=== PATIENT | female | born 1955 | race Caucasian/White ===

== ENCOUNTER → 2021-04-04 18:14 | Outpatient (CLI) | payer MEDICARE, SELFPAY ==
[2021-04-04 18:57] LABS: Basophils # 0.1 K/mm3 (0-0.2); Basophils % 0.8 % (0.1-2.0); Eosinophils # 0.1 K/mm3 (0.0-0.4); Eosinophils % 1.1 % (0.1-12.0); Hematocrit 40.1 % (37.0-47.0); Hemoglobin 13.5 g/dL (12.2-16.2); Lymphocytes # 2.6 K/mm3 (0.7-4.5); Lymphocytes % 26.2 % (10-50); Mean Corpuscular HGB Conc 33.7 g/dL (31.8-35.4); Mean Corpuscular Hemoglobin 30.6 pg (27.0-31.2); Mean Corpuscular Volume 90.8 fl (81-99); Mean Platelet Volume 8.5 fl (7.4-10.4); Monocytes # 0.6 K/mm3 (0.1-1.0); Monocytes % 6.3 % (1.7-9.3); Neutrophils # 6.6 K/mm3 (1.8-7.8); Neutrophils % 65.7 % (37.0-80.0); Platelet Count 399 K/mm3 (142-424); Red Blood Count 4.42 M/mm3 (4.20-5.40); Red Cell Distribution Width 14.3 % (11.5-17.5)
[2021-04-04 19:27] LABS: Alanine Aminotransferase 30 U/L (12-78); Albumin Level 4.7 g/dl (3.5-5.0); Albumin/Globulin Ratio 1.5 (1.1-1.8); Alkaline Phosphatase 124 U/L (38-126); Aspartate Amino Transferase 38 U/L (14-36); Bilirubin,Total 0.8 mg/dl (0.2-1.3); Blood Urea Nitrogen 16 mg/dl (7-17); Calcium 9.7 mg/dl (8.4-10.2); Carbon Dioxide 31 mmol/L (22.0-30.0); Chloride 98 mmol/L (98-107); Cholesterol 177 mg/dl (140-200); Estimated Glomerular Filt Rate 84 ml/min (>60); GFR (African American) 101 ML/MIN (>60); Globulin 3.1 g/dL (1.3-3.2); Glucose 94 mg/dl (74-100); HDL Cholesterol 44 mg/dl (40-60); Sodium 136 mmol/L (136-145); Total Protein,Serum 7.8 g/dl (6.3-8.2); Triglycerides 174 mg/dl (30-150); VLDL Cholesterol 35 mg/dL (0-40)
[2021-04-04 19:37] LABS: Direct LDL Cholesterol 96.95 mg/dL (100-129)
[2021-04-04 20:10] LABS: Thyroid Stimulating Hormone 1.22 uIU/mL (0.465-4.68)
== END ==
PROVIDERS: Visit Provider Family Medicine
DX: E03.9 Hypothyroidism, unspecified (principal); I10 Essential (primary) hypertension; R10.9 Unspecified abdominal pain
CPT/HCPCS: 80053; 80061; 84436; 84443; 85025

== ENCOUNTER → 2021-04-26 08:04 | Outpatient (CLI) | payer MEDICARE, OTHER, SELFPAY ==
--- NOTE | 2021-04-26 08:04 | CT_ITS ---
PROCEDURE: CT ABDOMEN PELVIS WO CON CLINICAL INDICATION: abd pain, LLQ pain abd pain, LLQ pain for 2 months COMPARISON: No exams were available for comparison TECHNIQUE: Axial images obtained with sagittal and coronal reformats. All CT scans at the facility use one or more dose reduction, viz: automated exposure control, ma/kV adjustment per patient size (including targeted exams where dose is matched to indication, i.e. head), or iterative reconstruction technique. FINDINGS: Lower thorax: The lower lung guzman are clear with minimal atelectasis or scarring at the left posterior gutter, there is no pleural fluid ABDOMEN: Liver: No masses or biliary dilatation. Gallbladder: Nondistended. No radio opaque stones. 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 Pancreas: No masses or peripancreatic fluid collections. Spleen: unremarkable except for a few calcifications Adrenals: unremarkable Kidneys/ureters: unremarkable ABDOMEN & PELVIS: Stomach bowel: There is a small hiatal hernia. The stomach is nondistended and appears normal. No obvious mass or thickening. The small bowel appears normal. There has been a previous appendectomy with a surgical clip at the appendix site. There is a large amount stool in the ascending and transverse colon. There is scattered stool and gas seen in the descending and sigmoid colon with mild diffuse diverticulosis. There is no evidence of diverticulitis. . Peritoneum: No abnormal fluid collections. No obvious inflammatory changes. No free air. Lymph nodes: No enlarged lymph nodes apparent. Vasculature: There is mild scattered arteriosclerotic calcification of the infrarenal aorta and proximal common iliac arteries but there is no aneurysm. Bones: No acute fracture PELVIS: Reproductive: Post hysterectomy. Bladder: The urinary bladder is moderately distended with urine and appears normal, there is no free fluid in the pelvis. Appendix: Post appendectomy IMPRESSION: Large amount right-sided stool, mild diffuse diverticulosis of the descending and sigmoid colon without evidence of diverticulitis Dictated by: Dr. Manohar Sanders MD 04/26/2021 08:58 Dr. Manohra Sanders MD in [facility] 04/26/2021 08:58
== END ==
PROVIDERS: PCP Family Medicine; Visit Provider Family Medicine
DX: R10.32 Left lower quadrant pain (principal); R10.9 Unspecified abdominal pain
CPT/HCPCS: 74176

== ENCOUNTER → 2021-06-05 14:38 | Outpatient (POV) | payer MEDICARE, OTHER, SELFPAY | PROVIDERS: Visit Provider Nurse Practitioner Family | DX: Z00.00 Encounter for general adult medical examination without abnormal findings (principal) ==

== ENCOUNTER → 2021-07-04 15:35 | Outpatient (CLI) | payer MEDICARE, OTHER, SELFPAY | PROVIDERS: Visit Provider Family Medicine | DX: R05 Cough (principal); Z20.822 Contact with and (suspected) exposure to COVID-19 | CPT/HCPCS: U0003 ==

== ENCOUNTER → 2023-03-08 13:40 | Outpatient (CLI) | payer MEDICARE, SELFPAY ==
[2023-03-08 18:13] LABS: Basophils # 0.1 K/mm3 (0-0.2); Basophils % 0.6 % (0.1-2.0); Eosinophils # 0.1 K/mm3 (0.0-0.4); Hemoglobin 13.7 g/dL (12.2-16.2); Lymphocytes # 2.2 K/mm3 (0.7-4.5); Lymphocytes % 25.3 % (10-50); Mean Corpuscular HGB Conc 33.4 g/dL (31.8-35.4); Mean Corpuscular Hemoglobin 31.7 pg (27.0-31.2); Mean Platelet Volume 8.9 fl (7.4-10.4); Monocytes # 0.6 K/mm3 (0.1-1.0); Monocytes % 6.6 % (1.7-9.3); Neutrophils # 5.7 K/mm3 (1.8-7.8); Neutrophils % 66.5 % (37.0-80.0); Platelet Count 424 K/mm3 (142-424); Red Blood Count 4.31 M/mm3 (4.20-5.40); Red Cell Distribution Width 14.3 % (11.5-17.5); White Blood Count 8.6 K/mm3 (4.8-10.8)
[2023-03-08 18:38] LABS: Alanine Aminotransferase 30 U/L (12-78); Albumin Level 4.4 g/dl (3.5-5.0); Albumin/Globulin Ratio 1.5 (1.1-1.8); Alkaline Phosphatase 166 U/L (38-126); Anion Gap 14.1 mEq/L (5-15); Aspartate Amino Transferase 31 U/L (14-36); Bilirubin,Total 0.8 mg/dl (0.2-1.3); Blood Urea Nitrogen 17 mg/dl (7-17); Calcium 9.8 mg/dl (8.4-10.2); Carbon Dioxide 30 mmol/L (22.0-30.0); Chloride 96 mmol/L (98-107); Chol/HDL Ratio 3.1 (1-3.5); Cholesterol 154 mg/dl (140-200); Estimated Glomerular Filt Rate 99 ml/min (>60); GFR (African American) 120 ML/MIN (>60); Glucose 87 mg/dl (74-100); HDL Cholesterol 49 mg/dl (40-60); Potassium 4.1 mmoL/L (3.5-5.1); Sodium 136 mmol/L (136-145); Total Protein,Serum 7.4 g/dl (6.3-8.2); Triglycerides 132 mg/dl (30-150); VLDL Cholesterol 26 mg/dL (0-40)
[2023-03-08 18:49] LABS: Direct LDL Cholesterol 84.74 mg/dL (100-129)
[2023-03-08 19:11] LABS: Thyroid Stimulating Hormone 0.55 uIU/mL (0.465-4.68)
== END ==
PROVIDERS: PCP Family Medicine; Visit Provider Family Medicine
DX: E03.9 Hypothyroidism, unspecified (principal); R19.7 Diarrhea, unspecified
CPT/HCPCS: 80053; 80061; 84436; 84443; 85025

== ENCOUNTER 2024-01-22 18:50 | Outpatient (CLI) | payer MEDICARE, SELFPAY ==
[2024-01-22 18:34] LABS: Basophils # 0.1 K/mm3 (0-0.2); Basophils % 1.4 % (0.1-2.0); Eosinophils # 0.1 K/mm3 (0.0-0.4); Eosinophils % 1.8 % (0.1-12.0); Hematocrit 38.7 % (37.0-47.0); Hemoglobin 13.2 g/dL (12.2-16.2); Lymphocytes # 1.8 K/mm3 (0.7-4.5); Mean Corpuscular HGB Conc 34.2 g/dL (31.8-35.4); Mean Corpuscular Hemoglobin 32.6 pg (27.0-31.2); Mean Corpuscular Volume 95.4 fl (81-99); Mean Platelet Volume 8.8 fl (7.4-10.4); Monocytes # 0.4 K/mm3 (0.1-1.0); Monocytes % 6.4 % (1.7-9.3); Neutrophils # 3.8 K/mm3 (1.8-7.8); Neutrophils % 61.3 % (37.0-80.0); Platelet Count 341 K/mm3 (142-424); Red Blood Count 4.05 M/mm3 (4.20-5.40); White Blood Count 6.2 K/mm3 (4.8-10.8)
[2024-01-22 19:01] LABS: T4 (Thyroxine) 9.8 ug/dl (5.53-11.0)
[2024-01-22 19:15] LABS: Thyroid Stimulating Hormone < 0.02 uIU/mL (0.465-4.68)
[2024-01-22 19:22] LABS: Chloride 100 mmol/L (98-107)
[2024-01-22 19:23] LABS: Potassium 4.2 mmoL/L (3.5-5.1); Sodium 137 mmol/L (136-145)
[2024-01-22 19:25] LABS: Alanine Aminotransferase 27 U/L (12-78); Aspartate Amino Transferase 33 U/L (14-36); Blood Urea Nitrogen 17 mg/dl (7-17); Estimated Glomerular Filt Rate 71 ml/min (>60); GFR (African American) 86 ML/MIN (>60)
[2024-01-22 19:26] LABS: Albumin Level 4.2 g/dl (3.5-5.0); Albumin/Globulin Ratio 1.6 (1.1-1.8); Alkaline Phosphatase 136 U/L (38-126); Anion Gap 9.2 mEq/L (5-15); Bilirubin,Total 0.4 mg/dl (0.2-1.3); Calcium 9.7 mg/dl (8.4-10.2); Carbon Dioxide 32 mmol/L (22.0-30.0); Chol/HDL Ratio 4.4 (1-3.5); Cholesterol 153 mg/dl (140-200); Globulin 2.6 g/dL (1.3-3.2); Glucose 116 mg/dl (74-100); HDL Cholesterol 35 mg/dl (40-60); Total Protein,Serum 6.8 g/dl (6.3-8.2); Triglycerides 137 mg/dl (30-150); VLDL Cholesterol 27 mg/dL (0-40)
[2024-01-22 19:34] LABS: Hemoglobin A1C 5.7 % (4.0-6.0)
[2024-01-22 19:41] LABS: Direct LDL Cholesterol 84.11 mg/dL (100-129)
== END 2024-01-22 23:59 ==
LOC: LAB.DROPOF 18:51
PROVIDERS: PCP Family Medicine; Visit Provider Family Medicine
DX: I10 Essential (primary) hypertension (principal); E03.9 Hypothyroidism, unspecified; E11.9 Type 2 diabetes mellitus without complications
CPT/HCPCS: 80053; 80061; 83036; 84436; 84443; 85025

== ENCOUNTER 2024-05-28 16:00 | Outpatient (CLI) | payer MEDICARE, SELFPAY ==
[2024-05-28 18:26] LABS: Basophils # 0.1 K/mm3 (0-0.2); Basophils % 0.7 % (0.1-2.0); Eosinophils # 0.1 K/mm3 (0.0-0.4); Hematocrit 38.2 % (37.0-47.0); Hemoglobin 12.5 g/dL (12.2-16.2); Lymphocytes # 2.1 K/mm3 (0.7-4.5); Lymphocytes % 26.8 % (10-50); Mean Corpuscular HGB Conc 32.8 g/dL (31.8-35.4); Mean Corpuscular Hemoglobin 31.6 pg (27.0-31.2); Mean Corpuscular Volume 96.1 fl (81-99); Mean Platelet Volume 8.6 fl (7.4-10.4); Monocytes # 0.4 K/mm3 (0.1-1.0); Monocytes % 4.9 % (1.7-9.3); Neutrophils # 5.2 K/mm3 (1.8-7.8); Neutrophils % 66.6 % (37.0-80.0); Platelet Count 351 K/mm3 (142-424); Red Blood Count 3.97 M/mm3 (4.20-5.40); Red Cell Distribution Width 14.3 % (11.5-17.5); White Blood Count 7.9 K/mm3 (4.8-10.8)
[2024-05-28 18:32] LABS: Alanine Aminotransferase 21 U/L (12-78); Albumin Level 3.9 g/dl (3.5-5.0); Albumin/Globulin Ratio 1.3 (1.1-1.8); Alkaline Phosphatase 132 U/L (38-126); Aspartate Amino Transferase 23 U/L (14-36); Bilirubin,Total 0.4 mg/dl (0.2-1.3); Blood Urea Nitrogen 16 mg/dl (7-17); Calcium 9.7 mg/dl (8.4-10.2); Carbon Dioxide 33 mmol/L (22.0-30.0); Chloride 98 mmol/L (98-107); Estimated Glomerular Filt Rate 83 ml/min (>60); GFR (African American) 100 ML/MIN (>60); Glucose 102 mg/dl (74-100); Sodium 136 mmol/L (136-145); Total Protein,Serum 6.9 g/dl (6.3-8.2)
[2024-05-28 19:00] LABS: Thyroid Stimulating Hormone 0.08 uIU/mL (0.465-4.68)
== END 2024-05-28 23:59 | disposition home or self-care (01) ==
LOC: LAB.DROPOF 05-29 10:12
PROVIDERS: PCP Family Medicine; Visit Provider Family Medicine
DX: E03.9 Hypothyroidism, unspecified (principal)
CPT/HCPCS: 80050; 80053; 84443; 85025

== ENCOUNTER 2024-10-16 12:23 | Outpatient (CLI) | payer MEDICARE, SELFPAY ==
--- NOTE | 2024-10-16 12:45 | CA_ITS ---
APPROVED REPORT EXAM: Comprehensive 2D, Doppler, and color-flow Echocardiogram Card Cleaner: MACHO Vora, RVS Ht: 5 ft 6 in Wt: 216lbs BSA: 2.07 BP: 138/79 mmHg Indications: [place], POLO, Chest pressure, Asthma, SOA, Ex-smoker Echo Enhancing Agent Comments: TDS: Poor acoustics throughout exam 2D Dimensions Aortic Root 2.60 cm LA Volume 39.50 mL Left Atrium 2.82 cm LA Volume Index 19.145402 mL/m2 (M/F) 16-34 RVID Base (AP4) 3.15 cm (M/F) 2.5-4.1 EF AP4 48.90 % LVOT 2.00 cm (M/F) 1.5-2.5 GL Strain -15.4 % M-Mode Dimensions RVDd 1.51 cm (0.9-2.6) LVDd 5.15 cm (3.5-5.7) Ao Diam 2.78 cm (2.0-3.7) LVDs 3.61 cm (3.5-5.7) IVSd 0.99 cm (0.6-1.1) PWd 1.23 cm (0.6-1.1) EF (Teich) 63.30% EPSs 0.93 cm FS 34.70% EDV (Teich) 149.30 mL TAPSE 2.26 (<1.7) ESV (Teich) 54.80 mL LV Diastology E Decel Time 136 (160-240 msec) E/A Ratio 0.85 MED E' 5.1 (>= 7 cm/sec) MED A' 8.20 cm/s E'/MED E' Ratio 24.53 (<= 14) LAT E' 8.5 (>= 10 cm/sec) LAT A' 10.70 cm/s E/LAT E' Ratio 14.72 (<= 14) Aortic Valve LVOT Max 118.0 (70-110 cm/s) ESTEFANI Index 1.11 cm2/m2 LVOT VTI 21.56 cm AoV Peak [place]. 166.0 (50-130 cm/s) AI PHT 482.00 ms AO Peak GR. 10.70 mmHg AO Mean GR. 5.50 (<5 mmHg) AO VTI 29.6 (18-25 cm) ESTEFANI (VTI) 2.29 (2.5-4.5 cm2) Mitral Valve MV E Max [place]. 125.0 (40-130 cm/s) MV A Velocity 147.0 (40-130 cm/s) E/A Ratio 0.85 MV Decel. Time 136 (160-240 ms) Tricuspid Valve TR P. Velocity 266.00 cm/s RAP Estimate 10.00 mmHg RVSP 38.20 mmHg Left Ventricle The left ventricle is normal size. The left ventricular systolic function is normal. The left ventricular ejection fraction is within the normal range. There is increased LV wall thickness. There is normal LV segmental wall motion. Transmitral Doppler flow pattern suggests impaired LV relaxation. LVEF is 55%. Right Ventricle The right ventricle is normal size. The right ventricular systolic function is normal. Atria The left atrium size is normal. The right atrium size is normal. There is no color Doppler evidence of interatrial shunt. Aortic Valve The aortic valve is mildly thickened. There is no aortic valvular stenosis. Mild aortic regurgitation. Mitral Valve The mitral valve is normal in structure. No evidence of mitral valve stenosis. Mild mitral regurgitation. Tricuspid Valve Tricuspid valve is grossly normal in structure and function. Mild tricuspid regurgitation. RVSP is 20-25 mmHg. Pulmonic Valve The pulmonary valve is normal in structure. Trace pulmonic regurgitation. Great Vessels The aortic root is normal in size. The ascending aorta is normal in size. IVC is normal in size and collapses >50% with inspiration. Pericardium Small, anterior pericardial effusion is present. No echo indications of tamponade. Other Information Study Quality: Fair Conclusion Normal biventricular systolic function. Mild AI, mild MR, mild TR. Small, anterior pericardial effusion is present. No echo indications of tamponade. Electronically signed by : Shantel Hidalgo MD 10/28/2024 15:32:04
== END 2024-10-16 23:59 | disposition home or self-care (01) ==
LOC: RT 12:23
PROVIDERS: PCP Family Medicine; Visit Provider Nurse Practitioner Family
DX: I34.0 Nonrheumatic mitral (valve) insufficiency (principal); I35.1 Nonrheumatic aortic (valve) insufficiency; I36.1 Nonrheumatic tricuspid (valve) insufficiency; R06.09 Other forms of dyspnea; R06.01 Orthopnea
CPT/HCPCS: 93306

== ENCOUNTER 2024-11-02 14:08 | Outpatient (CLI) | payer MEDICARE, SELFPAY ==
[2024-11-02 14:45] LABS: Basophils # 0.1 K/mm3 (0-0.2); Basophils % 0.6 % (0.1-2.0); Eosinophils # 0.1 K/mm3 (0.0-0.4); Eosinophils % 1.3 % (0.1-12.0); Monocytes # 0.6 K/mm3 (0.1-1.0); White Blood Count 8.9 K/mm3 (4.8-10.8)
[2024-11-02 15:16] LABS: Alanine Aminotransferase 30 U/L (12-78); Albumin Level 4.3 g/dl (3.5-5.0); Alkaline Phosphatase 126 U/L (38-126); Anion Gap 8.6 mEq/L (5-15); Aspartate Amino Transferase 40 U/L (14-36); Bilirubin,Direct 0.4 mg/dl (0.0-0.4); Bilirubin,Indirect 0.3 mg/dL (0.0-0.9); Bilirubin,Total 0.7 mg/dl (0.2-1.3); Bilirubin,Unconjugated 0.4 mg/dL (0.0-1.1); Blood Urea Nitrogen 16 mg/dl (7-17); Calcium 9.9 mg/dl (8.4-10.2); Carbon Dioxide 33 mmol/L (22.0-30.0); Chloride 97 mmol/L (98-107); Chol/HDL Ratio 5.3 (1-3.5); Cholesterol 168 mg/dl (140-200); Estimated Glomerular Filt Rate 71 ml/min (>60); GFR (African American) 86 ML/MIN (>60); Glucose 93 mg/dl (74-100); HDL Cholesterol 32 mg/dl (40-60); Magnesium 1.6 mg/dl (1.6-2.3); Potassium 3.6 mmoL/L (3.5-5.1); Sodium 135 mmol/L (136-145); Total Protein,Serum 6.8 g/dl (6.3-8.2); Triglycerides 142 mg/dl (30-150); VLDL Cholesterol 28 mg/dL (0-40)
[2024-11-02 15:27] LABS: Direct LDL Cholesterol 113.87 mg/dL (100-129)
[2024-11-02 15:32] LABS: Free T4 (Free Thyroxine) 1.72 ng/dl (0.78-2.19)
[2024-11-02 15:46] LABS: Thyroid Stimulating Hormone < 0.02 uIU/mL (0.465-4.68)
[2024-11-02 17:13] LABS: Hematocrit 37.8 % (37.0-47.0); Hemoglobin 12.9 g/dL (12.2-16.2); Lymphocytes # 2.3 K/mm3 (0.7-4.5); Mean Corpuscular HGB Conc 34.1 g/dL (31.8-35.4); Mean Corpuscular Hemoglobin 30.3 pg (27.0-31.2); Mean Corpuscular Volume 88.7 fl (81-99); Mean Platelet Volume 10.2 fl (7.4-10.4); Monocytes % 6.5 % (1.7-9.3); Neutrophils # 5.8 K/mm3 (1.8-7.8); Neutrophils % 65.4 % (37.0-80.0); Platelet Count 353 K/mm3 (142-424); Red Blood Count 4.26 M/mm3 (4.20-5.40); Red Cell Distribution Width 12.9 % (11.5-17.5)
== END 2024-11-02 23:59 | disposition home or self-care (01) ==
LOC: LAB 14:10
PROVIDERS: PCP Family Medicine; Visit Provider Nurse Practitioner Family
DX: R06.09 Other forms of dyspnea (principal); I10 Essential (primary) hypertension; E03.9 Hypothyroidism, unspecified; Z68.31 Body mass index [BMI] 31.0-31.9, adult; E66.9 Obesity, unspecified
CPT/HCPCS: 36415; 80048; 80061; 80076; 83735; 84439; 84443; 85025

== ENCOUNTER 2024-11-11 07:29 | Outpatient (CLI) | payer MEDICARE, SELFPAY ==
--- NOTE | 2024-11-11 | CA_ITS ---
APPROVED REPORT Exam: Pharmacologic Technologist: Carina Barroso Ht: 5 ft 7 in Wt: 199 lbs BSA: 2.02 m2 HR: 69 bpm BP: 122/46 mmHg Stress Test Details Test: Lexiscan HR Resting HR: 69 bpm Max Heart Rate (APMHR): 150.505492 bpm Max HR Achieved: 112 bpm Target HR (85% APMHR): 127.964777 bpm % of APMHR: 74.67 Recovery HR: 94 bpm BP Resting BP: 122.0/46.0 mmHg Max BP: 128.0/59.0 mmHg Recovery BP: 128.0/59.0 mmHg ECG Stress ECG Conclusion Symptoms: No chest pain or shortness of breath. Fatigue and nausea noted with Lexiscan. Arrhythmias/Ectopy: PVCs noted ST-T Changes: Unremarkable due to Lexiscan Electronically signed by : Shantel Hidalgo MD 11/11/2024 12:23:16
--- NOTE | 2024-11-11 07:29 | NM_ITS ---
APPROVED REPORT Exam: Nuclear Stress Test Indication: htn, sob, fatigue, abn ekg Patient Location: Outpatient Stress Tech: Carina Barroso NM Tech:Janet Barfield JULIENCrystal RT (R)(N)(M) Ht: 5 ft 7 in Wt: 200 lbs Bra Size: 40c HR: 71 bpm BP: 122/46 mmHg BSA: 2.02 m2 TID: 1.21 BMI: 31.3 History: htn, sob, fatigue, abn ekg Procedure: Patient received 0.4 mg of intravenous Lexiscan, resting heart rate 71 bpm, resting blood pressure 122/46 mmHg, with Lexiscan maximum heart rate achieved was 112 bpm which is % of the maximum predicted heart rate and blood pressure was 124/64 mmHg. With Lexiscan, patient denied any complaint of chest pain. Cardiac Stress and Resting SPECT Images: Cardiac Stress and Resting SPECT images were obtained using technetium 99m Myoview 31.7 mCi stress and 10.08 mCi at rest. Resting and stress imaging in supine and prone positions demonstrate no evidence of fixed or reversible perfusion defects. There is increased transient ischemic dilatation ratio (TID 1.21), suggestive of possible multivessel disease or balanced ischemia. Gated imaging demonstrates normal global and regional LV systolic function. LVEF is calculated at 70%. Conclusion: No evidence of fixed or reversible perfusion defects. There is increased transient ischemic dilatation ratio (TID 1.21), suggestive of possible multivessel disease or balanced ischemia. Gated imaging demonstrates normal global and regional LV systolic function. LVEF is calculated at 70%. Electronically signed by : Shantel Hidalgo MD 11/11/2024 12:23:08
[2024-11-11] MEDS: SODIUM CHLORIDE 0.9% 10ML SYR (RAD ONLY) 10 ML IV ×2 (07:45→09:00)
[2024-11-11] MEDS: REGADENOSON 0.4MG/5ML SYRINGE 0.4 MG IV (09:00)
[2024-11-11] MEDS: ISOTOPE MYOVIEW (PER STUDY) 1 DOSE IV (10:21)
== END 2024-11-11 23:59 | disposition home or self-care (01) ==
LOC: RAD 07:29
PROVIDERS: PCP Family Medicine; Visit Provider Nurse Practitioner Family
DX: R94.31 Abnormal electrocardiogram [ECG] [EKG] (principal); R06.09 Other forms of dyspnea; I10 Essential (primary) hypertension; E66.811 Obesity, class 1; E66.09 Other obesity due to excess calories; Z68.34 Body mass index [BMI] 34.0-34.9, adult; R53.83 Other fatigue
CPT/HCPCS: 78452; 93017; 93018; A9502; J2785

== ENCOUNTER 2024-12-03 10:40 | Outpatient (CLI) | payer MEDICARE, SELFPAY ==
[2024-12-03 11:36] LABS: Chloride 97 mmol/L (98-107)
[2024-12-03 11:37] LABS: Potassium 3.6 mmoL/L (3.5-5.1); Sodium 140 mmol/L (136-145)
[2024-12-03 11:40] LABS: Anion Gap 13.6 mEq/L (5-15); Blood Urea Nitrogen 15 mg/dl (7-17); Calcium 9.4 mg/dl (8.4-10.2); Carbon Dioxide 33 mmol/L (22.0-30.0); Estimated Glomerular Filt Rate 83 ml/min (>60); GFR (African American) 100 ML/MIN (>60); Glucose 105 mg/dl (74-100)
== END 2024-12-03 23:59 | disposition home or self-care (01) ==
PROVIDERS: PCP Family Medicine; Visit Provider Nurse Practitioner Family
DX: R93.1 Abnormal findings on diagnostic imaging of heart and coronary circulation (principal); I31.39 Other pericardial effusion (noninflammatory); R60.0 Localized edema; R94.31 Abnormal electrocardiogram [ECG] [EKG]; R53.83 Other fatigue; E66.9 Obesity, unspecified; Z68.34 Body mass index [BMI] 34.0-34.9, adult; R06.09 Other forms of dyspnea; I10 Essential (primary) hypertension; E03.9 Hypothyroidism, unspecified
CPT/HCPCS: 36415; 80048

== ENCOUNTER 2024-12-11 08:55 | Outpatient (CLI) | payer MEDICARE, SELFPAY ==
--- NOTE | 2024-12-11 09:07 | CT_ITS ---
APPROVED REPORT Home Manager: CLINICAL INDICATION Chest Pain, TID on nuclear stress test TECHNIQUE Image Acquisition: A 128 slice MDCT scanner (wst.cna View) was used for data acquisition. A noncontrast coronary calcium scan was performed. A CT attenuation threshold of 130 Hounsfield units (HU) was used for the detection of calcium in contiguous voxels of 1 sq mm in area to be counted as individual lesions. Bolus tracking in the ascending aorta with a threshold of 180 HU was performed. Immediately afterwards, ECG synchronized cardiac CT was then performed from the cardiac base to apex using retrospective gating with ECG tube current modulation. A total of 85 mL of Isovue 370 mg/mL contrast medium was administered at 5 mL/sec followed by a saline flush using a biphasic injection protocol. A tube voltage of 120 KVp was used. The patient received the following medications prior to the cardiac CT. 50 mg of oral metoprolol 15 mg of oral ivabradine 0.4 mg of sublingual nitroglycerin The average heart rate at the time of acquisition was 100 bpm and regular. Image Reconstruction Transaxial images were reconstructed at 0.67 mm slide thickness. Data was reviewed interactively on an advanced workstation capable of 2 and 3-dimensional displays in all conventional reconstruction formats, including multiplanar reformations, maximum intensity projections, curved multiplanar reformations, and volume rendered reconstructions. When applicable, selected routine images describing the relevant coronary anatomy and pathology were saved and sent to PACS. Complications None Technical Quality Overall image quality was suboptimal due to elevated HR at the time of image acquisition. Coronary artery opacification was suboptimal Total DLP (Dose-Length Product) is 2234.1 mGy-cm. The reported value represents the total of one or more individual components during the CT acquisition of this date and at this time, and as such, the same value may appear in more than one CT report depending on the interpreting/reporting physicians. COMPARISON None FINDINGS CT Coronary Calcium Scoring LMA (Left Main Artery) = 0 LAD (Left Anterior Descending) = 88 LCX (Left Coronary Circumflex) = 112 RCA (Right Coronary Artery) = 63 Total Calcium Score = 263 using the AJ-130 method. The observed calcium score of 263 is at 85th percentile for subjects of the same age, sex, and race/ethnicity. The interpretation of the calcium heart score is based on the following continuum*: 0 = no calcified plaque detected (risk of coronary artery disease is very low ??? less than 5%) 1-10 = calcium detected in extremely minimal levels (risk of coronary diseases is still low ??? less than 10%) 11-100 = mild levels of plaque detected with certainty (mild or minimal narrowing of heart arteries is likely) 101-400 = definite,at least moderate levels of plaque detected (relatively high risk of a heart attack within 3-5 years) >401-999 = extensive levels of plaque detected (high risk of heart attack, high levels of vascular disease are present, high likelihood of at least one significant coronary narrowing) *The calcium heart score quantifies the burden of coronary calcification/plaque in the coronary arteries. The calcium heart score is not able to evaluate the presence or burden of non-calcified (i.e. soft) plaque. There is also calcification in the aortic valve, and the ascending and descending thoracic aorta. Coronary CT Angiography The coronary arterial system is right dominant. Quantitative Stenosis Grading: Left Main (LM): The left main originates normally from the left sinus of Valsalva. The LM bifurcates into the left anterior descending artery and left circumflex artery. The LM is patent with no evidence of atherosclerosis. Left Anterior Descending (LAD) and Diagonal Branches: The LAD gives off 2 diagonal branch(es). There is mixed calcified/non-calcified plaque in the proximal LAD, with up to 25-49% luminal stenosis noted at the bifurcation with the first diagonal branch. There is no evidence of LAD-myocardial bridge. Left Circumflex (LCX) and Obtuse Marginals (OM): The LCX gives off 1 Obtuse Marginal (OM) branch(es). There is mixed calcified/noncalcified plaque in the proximal and mid LCX segments, with up to 25-49% luminal stenosis. Right Coronary Artery (RCA): The RCA originates normally from the right sinus of Valsalva. The RCA gives off a posterior descending artery (PDA) and posterolateral (PL) branches. There is mixed calcified/noncalcified plaque in the proximal RCA segment, with < 25% luminal stenosis. Non-Coronary Cardiac Findings: Analysis of the left ventricular (LV) structure and function was performed after 3-D reconstruction of the LV from axial images, with user-corrected automatic contouring for assessment of LV volumes and user-defined reconstruction from oblique planes for measurement of 3-D cardiac structure and function. -The left ventricle systolic function is normal. -There is no left atrial appendage filling defect. Two right pulmonary veins and two left pulmonary veins drain normally into the left atrium. -No pericardial thickening or calcification. -Central and branch pulmonary arteries in the [id number] are unremarkable. -Thoracic aorta within the visualized thoracic aortic-branches in the [id number] is unremarkable. Extracardiac Structures No significant extra-cardiac findings. Note, however, that this study is focused on the cardiac findings. IMPRESSION -Suboptimal image quality due to elevated HR at the time of image acquisition -Presence of coronary calcification with an Agatston score = 263 using the AJ-130 method. -The observed calcium score of 263 is at 85th percentile for subjects of the same age, sex, and race/ethnicity. -There is mild, nonobstructive coronary disease present, with no evidence of significant flow-limiting atherosclerosis of the coronary arteries. -CAD-RADS 2. Management recommendations per ACC/AHA guidelines*, as clinically appropriate. *Recommendations: CAD RADS 0: Reassurance. Consider non-atherosclerotic causes of chest pain. CAD RADS 1: Consider non-atherosclerotic causes of chest pain. Consider preventive therapy and risk factor modification. CAD RADS 2: Consider non-atherosclerotic causes of chest pain. Consider preventive therapy and risk factor modification, particularly for patients with nonobstructive plaque in multiple segments. CAD RADS 3: Consider further functional testing. Consider symptom-guided anti-ischemic and preventive pharmacotherapy as well as risk factor modification per published guideline statements. CAD RADS 4A: Consider further functional testing or invasive coronary angiography with revascularization per published guideline statements. Consider symptom-guided anti-ischemic and preventive pharmacotherapy as well as risk factor modification per published guideline statements. CAD RADS 4B: Invasive coronary angiography recommended with revascularization per published guideline statements. Consider symptom-guided anti-ischemic and preventive pharmacotherapy as well as risk factor modification per published guideline statements. CAD RADS 5: Consider invasive angiography and/or viability assessment with revascularization per published guideline statements. Consider symptom-guided anti-ischemic and preventive pharmacotherapy as well as risk factor modification per published guideline statements. CRITICAL RESULT None COMMUNICATION Per this written report The coronary and cardiac findings of this CCTA were reviewed, reported, and signed by David Hidalgo MD (Care Rep) Conclusion Electronically signed by : Shantel Hidalgo MD 12/14/2024 11:42:53
[2024-12-11 09:17] VITALS: BMI 31.3
[2024-12-11 09:27] VITALS: BP 122/81; PULSE 75; RESP 16; TEMP 36.7; O2SAT 96
[2024-12-11] MEDS: IVABRADINE HCL 7.5MG TABLET PO (09:36)
[2024-12-11] MEDS: METOPROLOL TARTRATE 50MG TABLET PO (09:36)
[2024-12-11 10:09] VITALS: BP 127/79; PULSE 70; RESP 16; O2SAT 98
[2024-12-11] MEDS: NITROGLYCERIN 0.4MG SL TABLET SL (10:09)
[2024-12-11 10:12] VITALS: BP 115/79; PULSE 62; RESP 16; O2SAT 95
[2024-12-11 10:15] VITALS: BP 95/38; PULSE 63; RESP 16; O2SAT 95
[2024-12-11 10:18] VITALS: BP 100/54; PULSE 64; RESP 16; O2SAT 95
[2024-12-11 10:30] VITALS: BP 93/50; PULSE 59; RESP 16; O2SAT 97
[2024-12-11] MEDS: SODIUM CHLORIDE 0.9% 10ML SYR (RAD ONLY) 10 ML IV (10:34)
[2024-12-11] MEDS: IOPAMIDOL-370 (76%);100ML BOTTLE 85 ML IV (10:34)
[2024-12-11] MEDS: 0.9 % SODIUM CHLORIDE 50 ML VIAL IV (10:34)
== END 2024-12-11 10:50 | disposition home or self-care (01) ==
PROVIDERS: PCP Family Medicine; Visit Provider Nurse Practitioner Family
DX: I25.10 Atherosclerotic heart disease of native coronary artery without angina pectoris (principal); R93.1 Abnormal findings on diagnostic imaging of heart and coronary circulation; I31.39 Other pericardial effusion (noninflammatory); R60.0 Localized edema; R94.31 Abnormal electrocardiogram [ECG] [EKG]; R53.83 Other fatigue; R06.09 Other forms of dyspnea; I10 Essential (primary) hypertension; E03.9 Hypothyroidism, unspecified
CPT/HCPCS: 75574; Q9967

== ENCOUNTER 2024-12-24 10:07 | Outpatient (CLI) | payer MEDICARE, SELFPAY ==
--- NOTE | 2024-12-24 10:10 | CA_ITS ---
FINAL REPORT TECHNIQUE: Flores scale, color and spectral doppler images of the bilateral carotid arteries were obtained. CLINICAL HISTORY: HTN, HLD, rt arm numbness occasionally. COMPARISON: None FINDINGS: Peak systolic velocity in the right internal carotid artery is 99 cm/sec. The internal carotid to common carotid artery ratio is 1.0. There is no significant carotid artery stenosis and mild plaque formation. The right vertebral artery is normal in direction. Peak systolic velocity in the left internal carotid artery is 91 cm/sec. The internal carotid to common carotid artery ratio is 1.2. There is no significant carotid artery stenosis and mild plaque formation. The left vertebral artery is normal in direction. IMPRESSION: No ultrasound evidence of hemodynamically significant carotid artery stenosis. Normal peak systolic velocities and normal internal to common carotid artery ratios bilaterally. Reviewed, Interpreted and Dictated by Xiao Daigle MD Transcribed by Zoya Baca Authenticated and [facility]
== END 2024-12-24 23:59 | disposition home or self-care (01) ==
LOC: RT 10:08
PROVIDERS: PCP Family Medicine; Visit Provider Nurse Practitioner Family
DX: R20.0 Anesthesia of skin (principal); I10 Essential (primary) hypertension; I25.10 Atherosclerotic heart disease of native coronary artery without angina pectoris; I31.39 Other pericardial effusion (noninflammatory); E78.5 Hyperlipidemia, unspecified
CPT/HCPCS: 93880

== ENCOUNTER 2025-01-11 07:40 | Outpatient (CLI) | payer MEDICARE, SELFPAY ==
--- NOTE | 2025-01-11 08:02 | CT_ITS ---
FINAL REPORT TECHNIQUE: Axial CT images of the chest were performed with and without intravenous contrast. Sagittal and coronal multiplanar reconstructions were performed. This study was performed with techniques to keep radiation doses as low as reasonably achievable (ALARA). Individualized dose reduction techniques using automated exposure control or adjustment of mA and/or kV according to the patient's size were employed. CLINICAL HISTORY: dyspnea/cp COMPARISON: None FINDINGS: CT CHEST WITH AND WITHOUT CONTRAST: Moderate vascular calcifications are present in the aortic arch. Right sided calcified mediastinal nodules are identified, as well as scattered calcifications in the lung guzman bilaterally consistent with calcified granulomas. There is a 9 mm noncalcified nodule present in the right upper lobe, which is best seen on image #27 of series 4. Mild scarring is present in the left lung base. Note is made of fatty infiltration of the liver. IMPRESSION: 9 mm noncalcified nodule in the right upper lobe, according to Fleischner criteria recommend 3-month follow-up chest CT. Reviewed, Interpreted and Dictated by Jem Luz MD Transcribed by Zoya Baca Authenticated and [facility]
[2025-01-11 08:03] LABS: Basophils % 0.4 % (0.1-2.0); Eosinophils # 0.1 K/mm3 (0.0-0.4); Eosinophils % 1.8 % (0.1-12.0); Hematocrit 32.5 % (37.0-47.0); Hemoglobin 10.9 g/dL (12.2-16.2); Lymphocytes # 1.7 K/mm3 (0.7-4.5); Lymphocytes % 23.2 % (10-50); Mean Corpuscular HGB Conc 33.5 g/dL (31.8-35.4); Mean Corpuscular Hemoglobin 29.8 pg (27.0-31.2); Mean Corpuscular Volume 88.8 fl (81-99); Mean Platelet Volume 9.5 fl (7.4-10.4); Monocytes # 0.5 K/mm3 (0.1-1.0); Monocytes % 6.4 % (1.7-9.3); Neutrophils % 67.9 % (37.0-80.0); Platelet Count 243 K/mm3 (142-424); Red Blood Count 3.66 M/mm3 (4.20-5.40); Red Cell Distribution Width 14.1 % (11.5-17.5); White Blood Count 7.4 K/mm3 (4.8-10.8)
[2025-01-11 08:12] LABS: Alanine Aminotransferase 20 U/L (12-78); Albumin Level 4.2 g/dl (3.5-5.0); Albumin/Globulin Ratio 1.4 (1.1-1.8); Alkaline Phosphatase 99 U/L (38-126); Anion Gap 7.7 mEq/L (5-15); Aspartate Amino Transferase 26 U/L (14-36); Bilirubin,Total 0.4 mg/dl (0.2-1.3); Blood Urea Nitrogen 11 mg/dl (7-17); Calcium 9.3 mg/dl (8.4-10.2); Carbon Dioxide 37 mmol/L (22.0-30.0); Chloride 97 mmol/L (98-107); Cholesterol 93 mg/dl (140-200); Estimated Glomerular Filt Rate 83 ml/min (>60); GFR (African American) 100 ML/MIN (>60); Globulin 2.9 g/dL (1.3-3.2); Glucose 120 mg/dl (74-100); HDL Cholesterol 31 mg/dl (40-60); Sodium 139 mmol/L (136-145); Total Protein,Serum 7.1 g/dl (6.3-8.2); Triglycerides 124 mg/dl (30-150); VLDL Cholesterol 25 mg/dL (0-40)
[2025-01-11 08:23] LABS: Direct LDL Cholesterol 35.22 mg/dL (100-129)
[2025-01-11 08:29] LABS: T4 (Thyroxine) 9.7 ug/dl (5.53-11.0); Triiodothryronine (T3) Uptake 33 % (23.5-40.5)
[2025-01-11 08:43] LABS: Thyroid Stimulating Hormone 0.02 uIU/mL (0.465-4.68)
[2025-01-11 08:44] LABS: Free T4 (Free Thyroxine) 1.55 ng/dl (0.78-2.19)
[2025-01-11 08:46] LABS: 25-OH Vitamin D, Total 80.7 ng/mL (30-100)
[2025-01-11 09:00] LABS: Potassium 2.7 mmoL/L (3.5-5.1)
[2025-01-11] MEDS: SODIUM CHLORIDE 0.9% 10ML SYR (RAD ONLY) 10 ML IV (09:14)
[2025-01-11] MEDS: IOPAMIDOL-370 (76%);100ML BOTTLE 75 ML IV (09:14)
[2025-01-11 09:16] LABS: Vitamin B12 > 1000 pg/mL (239-931)
[2025-01-11 09:52] LABS: Iron 85 ug/dL (37-170)
[2025-01-11 10:01] LABS: Total Iron Binding Capacity 374 ug/dL (265-497)
[2025-01-11 10:28] LABS: Ferritin 99.8 ng/ml (11.1-264)
[2025-01-12 11:12] LABS: Thyroid Peroxidase Antibodies 28 IU/mL (0-34); Triiodothyronine (T3) Free 2.6 pg/mL (2.0-4.4); Triiodothyronine (T3) Total 88 ng/dL (71-180)
[2025-01-15 08:13] LABS: Zinc 185 ug/dL (44-115)
== END 2025-01-11 23:59 | disposition home or self-care (01) ==
PROVIDERS: PCP Family Medicine; Visit Provider Nurse Practitioner Family
DX: R07.89 Other chest pain (principal); E78.2 Mixed hyperlipidemia; R20.0 Anesthesia of skin; Z86.39 Personal history of other endocrine, nutritional and metabolic disease; E03.9 Hypothyroidism, unspecified; I10 Essential (primary) hypertension; R06.09 Other forms of dyspnea; I25.10 Atherosclerotic heart disease of native coronary artery without angina pectoris; E78.5 Hyperlipidemia, unspecified; E66.811 Obesity, class 1; E66.09 Other obesity due to excess calories; Z68.34 Body mass index [BMI] 34.0-34.9, adult
CPT/HCPCS: 36415; 71270; 80053; 80061; 82306; 82607; 82728; 83540; 83550; 84436; 84439; 84443; 84479; 84480; 84481; 84482; 84630; 85025; 86376; Q9967

== ENCOUNTER 2025-04-20 07:45 | Outpatient (CLI) | payer MEDICARE, SELFPAY ==
--- OUTSIDE RECORDS SUMMARY | 2025-03-01 13:00 | XMS_ITS | Encounter Summary ---
Author Organization [place] [address] Care Team Providers Care Director Of Education And Training Name Role Phone Richard Teran MD Primary Care Provider [phone] Reason for Visit * Reason Comments Follow-up Encounter Details Date Type Department Care Team (Latest Contact Info) Description 03/01/2025 1:00 PM EDT Office Visit [facility] [address] [id number] Heather Doty, BUFFER NICKEL [address] [place] [id number] Incontinence of feces with fecal urgency (Primary Dx); OAB (overactive bladder); Urge incontinence; S/P implantation of urinary electronic stimulator device Social History Tobacco Use Types Packs/Day Years Used Date Smoking Tobacco: Former Cigarettes 0.1 35 1 972 - 2007 Tobacco Cessation:Counseling Given: Not Answered Alcohol Use Standard Drinks/Week Comments No 0 (1 standard drink = 0.6 oz pur e alcohol) Comments No Sex and Gender Information Value Date Recorded Sex Assigned at Not on file Legal Sex Female 1:28 AM EDT Gender Identity Not on file Sexual Orientation Not on file documented as of this encounter Last Filed Vital Signs Vital Sign Reading Time Taken Comments Blood Pressure - - Pulse 54 03/01/2025 1:13 PM EDT Temperature - - Respiratory Rate - - Oxygen Saturation 97% 03/01/2025 1:13 PM EDT Inhaled Oxygen Concentration - - Weight 89 kg (196 lb 3.2 oz) 03/01/2025 1:13 PM EDT Height 170.2 cm (5' 7 ) 03/01/2025 1:13 PM EDT Body Mass Index 30.73 03/01/2025 1:13 PM EDT documented in this encounter Progress Notes * Heather Doty, TALHA - 03/01/2025 1:00 PM EDT Images from the original note were not included. InterStim Follow up Note HPI: Pt has a hx of overactive bladder, stress incontinence, and urge incontinence. She is doing better with the current treatment plan. InterStim implant date-- 06/27/2024 PNE: no [employer] Rep present today: Yes Last seen 1 month ago--program changed Pt feels symptoms have improved since then and she is overall pleased at this time +NADINE Water pill--which is when most of her frequency occurs No water--drinks soda and Gatorade only! Bladder diary recall: Frequency: 16 Nocturia: 1-2 Pads/leaks: 0 Physical Exam Constitutional: General: She is not in acute distress. Appearance: Normal appearance. She is well-developed. She is not ill-appearing, toxic-appearing or diaphoretic. Pulmonary: Effort: Pulmonary effort is normal. No respiratory distress. Abdominal: General: There is no distension. Musculoskeletal: General: Normal range of motion. Skin: General: Skin is warm and dry. Neurological: Mental Status: She is alert and oriented to person, place, and time. Mental status is at baseline. Psychiatric: Mood and Affect: Mood normal. Behavior: Behavior normal. Thought Content: Thought content normal. Judgment: Judgment normal. Vitals: 03/01/25 1313 Pulse: 54 SpO2: 97% Surgical Incisions: sacral and right buttocks Clean, dry, intact, healed InterStim: ON Program: 2 @ 0.6 Changed: Yes, 2 @ 0.7 Impedances: good Battery: good Comments: NA Assessment/Plan: 1. Incontinence of feces with fecal urgency 2. OAB (overactive bladder) 3. Urge incontinence 4. S/P implantation of urinary electronic stimulator device --InterStim successful and therapeutic. Reviewed technician terminal and repeater expectations. Remote instructions reviewed. Avoid constant and frequent changes with the remote. Will need every yearly battery checks with the office. --Reassurance and encouragement provided. --Continue diet and behavioral modifications. --declines NADINE tx with MUS, reviewed. Can call for UROS and consent Return: Return for 1 year or as needed. Heather Doty APRN documented in this encounter Plan of Treatment Not on file documented as of this encounter Visit Diagnoses Diagnosis Incontinence of feces with fecal urgency- Primary OAB (overactive bladder) Hypertonicity of bladder Urge incontinence S/P implantation of urinary electronic stimulator device documented in this encounter Care Teams Director Of Education And Training Relationship Specialty Start Date End Date Richard Teran MD [address] [place] [address] PCP - General 01/01/11 documented as of this encounter
--- OUTSIDE RECORDS SUMMARY | 2025-04-20 07:48 | XMS_ITS | Clinical Summary ---
Author Organization [facility] Address [address] [place] [address] Phone Care Team Providers Care Interlibrary Loan Services Librarian Name Role Phone Richard Teran MD Primary Care Provider [phone] Allergies Active Allergy Reactions Criticality Noted Date Comments Adhesive Tape-Silicones Itching 12/09/2015 Codeine Other (See Comments) 09/28/2015 Severe headaches Metronidazole Other (See Comments) High 03/09/2024 Joint pain Sulfa (Sulfonamide Antibiotics) Rash High 09/28/2015 Medications gemfibrozil (LOPID) 600 mg Oral Tablet Take 600 mg by mouth 2 times daily (before meals). Active levothyroxine (SYNTHROID) 88 mcg Oral Tablet Take 88 mcg by mouth daily. Active aspirin 81 mg Oral Tablet, Chewable Take 81 mg by mouth daily. Active albuterol (PROVENTIL HFA;VENTOLIN HFA) 90 mcg/actuation Inhl HFA Aerosol Inhaler Inhale 2 Puffs into the lungs every 6 hours as needed. 2 Active baclofen (LIORESAL) 10 mg Oral Tablet Take 10 mg by mouth as needed. 1 Active estradioL (ESTRACE) 0.5 mg Oral Tablet 0.5 mg every other day. Active lisinopriL-hydro chlorothiazide (PRINZIDE;ZESTOR ETIC) 20-12.5 mg Oral Tablet Take 1 Tablet by mouth daily. Active Lactobacillus acidophilus (PROBIOTIC ACIDOPHILUS ORAL) Take 1 Tablet by mouth daily. Active antiox #8/om3/dha/epa/l ut/zeax (PRESERVISION AREDS 2, OMEGA-3, ORAL) Take by mouth daily. Active pyridoxine, vitamin B6, (B-6) 100 mg Oral Tablet Take 100 mg by mouth daily. Active cyanocobalamin, vitamin B-12, (VITAMIN B-12) 5,000 mcg/mL SL Drops Place under the tongue. Active Cholecalciferol, Vitamin D3, 50 mcg (2,000 unit) Oral Capsule Take by mouth daily. Active iron/vitamin B complex (GERITOL ORAL) Take by mouth. Activ e RED CLOVER ORAL Take by mouth daily. Active propylene glycol/peg 400/PF (SYSTANE, PF, OPHT) Apply to eye. Active White Petrolatum-Bledsoe al Oil (SYSTANE NIGHTTIME) 94-3 % Opht Ointment Apply to eye. Active vibegron (GEMTESA) 75 mg Oral TabletIndication s:OAB (overactive bladder) Take 75 mg by mouth daily. 30 Tablet 3 4 Active Additional Information Patient not taking.Reason: Pt electing to not take the medication, Reported on 03/01/2025 fluticasone propionate (FLONASE ALLERGY RELIEF) 50 mcg/actuation Nasl [place], Suspension 1-2 Sprays by Nasal route daily. Active budesonide-formo teroL (SYMBICORT) 80-4.5 mcg/actuation Inhl HFA Aerosol Inhaler Inhale 2 Puffs into the lungs 2 times daily. Active oxyCODONE (ROXICODONE) 5 mg Oral Tablet Take 1 Tablet by mouth every 4 hours as needed for Major Surgery/Trauma (G89.18). This script is for both surgeries. 10 Tablet 4 Active Active Problems Problem Noted Date Diagnosed Date Incontinence of feces with fecal urgency 024 OAB (overactive bladder) 05/11/2024 Urge incontinence 05/11/2024 Mixed incontinence 03/09/2024 Encounters Date Type Department Care Team Description 03/01/2025 1:00 PM EDT Office Visit [facility] [address] [phone] Heather Doty APRN Incontinence of feces with fecal urgency (Primary Dx); OAB (overactive bladder); Urge incontinence; S/P implantation of urinary electronic stimulator device 02/01/2025 11:40 AM EDT Office Visit [facility] [address] [phone] Heather Doty APRN UTI symptoms (Primary Dx); OAB (overactive bladder); Urge incontinence; S/P implantation of urinary electronic stimulator device; Incontinence of feces with fecal urgency; Urinary frequency from Last 3 Months Surgical History Surgery Date Site/Laterality Comments HYSTERECTOMY APPENDECTOMY DENTAL SURGERY teeth extraction and fillings COLONOSCOPY ABDOMINOPLASTY BLADDER SURGERY 06/24/2024 N/A Interstim Implant Stage 1; Surgeon: Mague Rajput MD; Location: [facility] MA[facility]; Service: Urology Medical devices from this surgery are in the Medical Devices section. BLADDER SURGERY 07/01/2024 N/A Interstim Implant Stage 2 and TYRX Pouch; Surgeon: Mague Rajput MD; Location: [facility] MAIN OR; Service: Gynecology Medical devices from this surgery are in the Medical Devices section. Medical History Medical History Date Comments Thyroid disease Hypertension Diverticulitis Asthma Hyperlipidemia Heart murmur Urinary incontinence OAB/ mixed incont Family History Medical History Relation Name Comments Anesth Problems Neg Hx Social History Tobacco Use Types Packs/Day Years [...] on file Sexual Orientation Not on file Obstetrics History Para Term AB IAB SAB Ectopic Multiple Livin g Live Births 1 Last Filed Vital Signs Vital Sign Reading Time Taken Comments Blood Pressure 103/53 07/01/2024 8:47 AM EDT Pulse 54 03/01/2025 1:13 PM EDT Temperature 36.6 C (97.9 F) 07/01/2024 8:47 AM EDT Respiratory Rate 20 07/01/2024 8:47 AM EDT Oxygen Saturation 97% 03/01/2025 1:13 PM EDT Inhaled Oxygen Concentration - - Weight 89 kg (196 lb 3.2 oz) 03/01/2025 1:13 PM EDT Height 170.2 cm (5' 7 ) 03/01/2025 1:13 PM EDT Body Mass Index 30.73 03/01/2025 1:13 PM EDT Plan of Treatment Health Maintenance Due Date Last Done Comments Wellness Exam Medicare 1958 DTaP/TDaP/Td (1 - Tdap) 1973 Cologuard 1999 Colon Cancer Screening 1999 Colonoscopy 1999 FIT 1999 Sigmoidoscopy 1999 Virtual Colonography 1999 Pneumococcal Vaccine 50+ (1 of 1 - PCV) 2004 Zoster (1 of 2) 2004 Bone Density Screening 2019 COVID-19 Vaccine ( season) 2024 08/06/2022, 10/09/2021, 02/15/2021, Additional history exists Influenza Vaccine (Season Ended) 2025 Breast Cancer Screening 07/10/2026 07/10/20 24, 07/05/2023, 2022, Additional history exists Hepatitis C Screening Completed 12/09/2015 Hepatitis B Vaccine Aged Out No longe r eligible based on patient's age to complete this topic Meningococcal B Vaccine Aged Out No l onger eligible based on patient's age to complete this topic Medical Devices Implanted Type Area Supervisor Money Room Device Identifier Shelf Expiration Date Model / Serial / Lot Kit Mri Lead Interstim Surescan 28cm - [id number] Implanted:Qty: 1 on 06/24/2024 by Mague Rajput MD at [facility] N/A: Back [employer]:NEURO 09/09/2025 [id number] / / [id number] Neurstm Intstm Ii 2x1.7in 0.3in Dbl Troc Pnt Prim Cell - [id number] Implanted:Qty: 1 on 07/01/2024 by Mague Rajput MD at [facility] N/A: Back [employer]:NEURO 07/01/2025 [id number] / [id number] / Envelope Tyrx Absb Anbctrl Mul-Prgm 2.5x2.7in 1x8mm - [id number] Implanted:Qty: 1 on 07/01/2024 by Mague Rajput MD at [facility] N/A: Back [employer]:NEURO [id number] 02/01/2025 [id number] / / [id number] Procedures Procedure Name Priority Date/Time Associated Diagnosis Comments URINE CULTURE (NO STAIN) Routine 02/01/2025 12:33 PM EDT Urinary frequency [facility]P URINALYSIS POC Routine 02/01/2025 12 :27 PM EDT UTI symptoms MM MAMMO DIGITAL DAVID SCREEN BILAT Routine 07/10/2024 8:32 AM EDT Encounter for screening mammogram for malignant neoplasm of breast HEPATITIS C ANTIBODY IGM + IGG Routine 12/09/2015 3:06 PM EST Inflammatory arthritis (HCC) Rheumatoid factor positive from Last 3 Months or Most Recently Relevant to Health Maintenance Results * URINE CULTURE (NO STAIN) (02/01/2025 12:33 PM EDT) Culture No growth at 30 hours. 02/03/2025 10:36 PM EDT [facility] Urine URINARY BLADDER STRUCTURE / Unknown 02/01/2025 12:33 PM EDT 02/01/2025 12:33 PM EDT us Heather Doty COMPUTER HARDWARE TECHNICIAN MICROBIOLOGY - GENERAL O RDERABLES Final Result [facility] [address] [facility] , [place] [address] * SEP URINALYSIS POC (02/01/2025 12:27 PM EDT) UA Color POC Yellow Color 02/01/2025 12:29 PM EDT [facility] [place] UA Appear POC Clear Clear 02/01/2025 12:29 PM EDT [facility] Gluc POC Negative Negative mg/dL 02/01/2025 12:29 PM EDT [facility] [place] Bili POC Negative Negative 02/01/2025 12:29 PM EDT [facility] Ketones POC Negative Negative mg/dL 02/01/2025 12:29 PM EDT [facility] SG POC 1.015 1.001 - 1.035 no units 02/01/2025 12:29 PM EDT [facility] [place] Blood POC Negative Negative 02/01/2025 12:29 PM EDT [facility] [place] pH POC 5.5 5.0 - 8.0 pH 02/01/2025 12:29 PM EDT [facility] Protein POC Negative Negative mg/dL 02/01/2025 12:29 PM EDT [facility] Urobilinogen POC 0.2 0.2, 1.0 02/01/2025 12:29 PM EDT [facility] Nitrite POC Negative Negative 02/01/2025 12:29 PM EDT [facility] Leuk Est POC Negative Negative 12:29 PM EDT [facility] Urine STRUCTURE OF URINARY TRACT PROPER / Unknown 02/01/2025 12:27 PM EDT 02/01/2025 12:29 PM EDT us Heather Doty COMPUTER HARDWARE TECHNICIAN POINT OF CARE TEST ORDER ERIKA Final Result [facility] UROGYNECOLOG[address] [place] [address] * MM MAMMO DIGITAL DAVID SCREEN BILAT (07/10/2024 8:32 AM EDT) Anatomical Region Laterality Modality Breast Bilateral Mammography 07/10/2024 8:32 AM EDT Impressions 07/11/2024 1:20 PM EDT Negative ([id number]) RECOMMENDATION: Routine Screening Mammogram in 1 Year COMMENTS: Narrative 07/11/2024 1:20 PM EDT EXAM: MM MAMMO DIGITAL DAVID SCREEN BILAT EXAM DATE: 07/10/2024 8:32 AM INDICATION: Z12.31-Encounter for screening mammogram for malignant neoplasm of [id number]-[id number]-CM COMPARISON STUDIES: Compared with prior studies the most recent being 07/05/2023 and 2022 TISSUE DENSITY: There are scattered areas of fibroglandular density. FINDINGS: No mammographic evidence of malignancy. Procedure Note Delano Williamson MD - 07/11/2024 EXAM: MM MAMMO DIGITAL DAVID SCREEN BILAT EXAM DATE: 07/10/2024 8:32 AM INDICATION: Z12.31-Encounter for screening mammogram for malignantneoplasm of [id number]-ELH-20-CM COMPARISON STUDIES: Compared with prior studies the most recent being07/05/2023 and 2022 TISSUE DENSITY: There are scattered areas of fibroglandular density. FINDINGS: No mammographic evidence of malignancy. IMPRESSION: Negative ([id number]-[id number]-5) RECOMMENDATION: Routine Screening Mammogram in 1 Year COMMENTS: Richard Teran MD IMG MAMMOGRAPHY ORDERABLES Final Result * HEPATITIS C ANTIBODY IGM + IGG (12/09/2015 3:06 PM EST) Hep C Ab Negative Negative [facility] Blood specimen (specimen) 12/09/2015 3:06 PM EST 12/09/2015 5:23 PM EST Mireille Jenkins MD IMMUNOLOGY ORDERABLES Fin al Result [facility] [address] [place] [address] from Last 3 Months or Most Recently Relevant to Health Maintenance Insurance HU[employer]NA MEDICARE HMO MR HUMANA MEDICARE HMO MR Care Teams Interlibrary Loan Services Librarian Relationship Specialty Start Date End Date Richard Teran MD [address] [place] [id number] PCP - General 01/01/11
[2025-04-20 08:07] LABS: Blood Urea Nitrogen 14 mg/dl (7-17); Estimated Glomerular Filt Rate 83 ml/min (>60); GFR (African American) 100 ML/MIN (>60)
[2025-04-20] MEDS: IOPAMIDOL-370 (76%);100ML BOTTLE 75 ML IV (08:29)
[2025-04-20] MEDS: SODIUM CHLORIDE 0.9% 10ML SYR (RAD ONLY) 10 ML IV (08:29)
--- NOTE | 2025-04-20 08:45 | CT_ITS ---
FINAL REPORT TECHNIQUE: Axial images through the chest was performed with and without contrast. Reformatted images were obtained and reviewed. This study was performed with techniques to keep radiation doses as low as reasonably achievable, (ALARA). Individualized dose reduction techniques using automated exposure control or adjustment of mA and/or kV according to the patient's size were employed. CLINICAL HISTORY: re-evaluate pulmonary nodules COMPARISON: 01/11/2025 FINDINGS: On the precontrast images, there is mild vascular calcification of the coronary arteries and right hilum. The heart is normal in size. There is no evidence of mediastinal or hilar adenopathy. There is no pleural or pericardial effusion. There is a stable noncalcified nodule measuring 8 mm in the right midlung. Finding is well-seen on image 26 of series 4. There is scarring in the lung bases. There is evidence of old granulomatous disease. IMPRESSION: Stable noncalcified nodule in the right midlung. Recommend continued follow-up in 6 months. Reviewed, Interpreted and Dictated by Jem Luz MD Transcribed by Yareli Roy Authenticated and [facility]
== END 2025-04-20 23:59 | disposition home or self-care (01) ==
LOC: RAD 07:46
PROVIDERS: PCP Family Medicine; Visit Provider Nurse Practitioner Family
DX: R91.1 Solitary pulmonary nodule (principal); I25.10 Atherosclerotic heart disease of native coronary artery without angina pectoris
CPT/HCPCS: 36415; 71270; 82565; 84520; Q9967

== ENCOUNTER 2025-07-09 14:46 | Outpatient (CLI) | payer MEDICARE, SELFPAY ==
--- OUTSIDE RECORDS SUMMARY | 2025-07-09 14:50 | XMS_ITS | Clinical Summary ---
Author Organization [facility] Address [address] [place] [address] Phone Care Team Providers Care Slab Grinder Name Role Phone Richard Teran MD Primary Care Provider [phone] Allergies Active Allergy Reactions Criticality Noted Date [...] PF, OPHT) Apply to eye. Active White Petrolatum-[place] al Oil (SYSTANE NIGHTTIME) 94-3 % Opht Ointment Apply to eye. Active vibegron (GEMTESA) 75 mg Oral TabletIndication s:OAB (overactive bladder) Take 75 mg by mouth daily. 30 Tablet 3 4 Active Additional Information Patient not taking.Reason: Pt electing to not take the medication, Reported on 03/01/2025 fluticasone propionate (FLONASE ALLERGY RELIEF) 50 mcg/actuation Nasl [place], Suspension 1-2 Sprays by Nasal route daily. [...] 05/11/2024 Urge incontinence 05/11/2024 Mixed incontinence 03/09/2024 Surgical History Surgery Date Site/Laterality Comments HYSTERECTOMY APPENDECTOMY DENTAL SURGERY teeth extraction and fillings COLONOSCOPY ABDOMINOPLASTY BLADDER SURGERY 06/24/2024 N/A Interstim Implant Stage 1; Surgeon: Mague Rajput MD; Location: [facility] MAIN OR; Service: Urology Medical devices from this surgery are in the Medical Devices section. BLADDER SURGERY 07/01/2024 N/A Interstim Implant Stage 2 and TYRX Pouch; Surgeon: Mague Rajput MD; Location: [facility] MAIN OR; Service: Gynecology Medical devices from [...] 03/01/2025 1:13 PM EDT Plan of Treatment Upcoming Encounters Date Type Department Care Team (Late st Contact Info) Description 07/19/2025 8:00 AM EDT Appointment [facility] [employer] [place] [phone] Richard Teran MD [address] [place] [address] Health Maintenance Due Date Last Done Comments Wellness Exam Medicare 1958 DTaP/TDaP/Td (1 - Tdap) 1973 Cologuard 1999 Colon Cancer Screening 1999 Colonoscopy 1999 FIT 1999 Sigmoidoscopy 1999 Virtual Colonography 1999 Pneumococcal Vaccine 50+ (1 of 1 - PCV) 2004 Zoster (1 of 2) 2004 Bone Density Screening 2019 COVID-19 Vaccine ( season) 2025 08/06/2022, 10/09/2021, 02/15/2021, Additional history exists Influenza Vaccine (#1) 2025 Breast Cancer Screening 07/10/2026 07/10/20 24, 07/05/2023, 2022, Additional history exists Hepatitis C Screening Completed 12/09/2015 Hepatitis B Vaccine Aged Out No longe r eligible based on patient's age to complete this topic Meningococcal B Vaccine Aged Out No l onger eligible based on patient's age to complete this topic Medical Devices Implanted Type Area Automobile Inspector Device Identifier Shelf Expiration Date Model / Serial / Lot Kit Mri Lead Interstim Surescan 28cm - [id number] Implanted:Qty: 1 on 06/24/2024 by Mague Rajput MD at [facility] N/A: Back [employer]:NEURO 09/09/2025 [id number] / / [id number] Neurstm Intstm Ii 2x1.7in 0.3in Dbl Troc Pnt Prim Cell - [id number] Implanted:Qty: 1 on 07/01/2024 by Mague Rajput MD at [facility] N/A: Back [employer]:NEURO 07/01/2025 [id number] / [id number] / Envelope Tyrx Absb Anbctrl Mul-Prgm 2.5x2.7in 1x8mm - [id number] Implanted:Qty: 1 on 07/01/2024 by Mague Rajput MD at [facility] N/A: Back [employer]:NEURO [id number] 02/01/2025 [id number] / / [id number] Procedures Procedure Name Priority Date/Time Associated Diagnosis Comments MM MAMMO DIGITAL DAVID SCREEN BILAT Routine 07/10/2024 8:32 AM EDT Encounter for screening mammogram for malignant neoplasm of breast HEPATITIS C ANTIBODY IGM + IGG Routine 12/09/2015 3:06 PM EST Inflammatory arthritis (HCC) Rheumatoid factor positive from Last 3 Months or Most Recently Relevant to Health Maintenance Results * MM MAMMO DIGITAL DAVID SCREEN BILAT (07/10/2024 8:32 AM EDT) Anatomical Region Laterality Modality Breast Bilateral Mammography 07/10/2024 8:32 AM EDT Impressions 07/11/2024 1:20 PM EDT Negative ([id number]) RECOMMENDATION: Routine Screening Mammogram in 1 Year COMMENTS: Narrative 07/11/2024 1:20 PM EDT EXAM: MM MAMMO DIGITAL DAVID SCREEN BILAT EXAM DATE: 07/10/2024 8:32 AM INDICATION: Z12.31-Encounter for screening mammogram for malignant neoplasm of [id number]-[id number]-CM COMPARISON STUDIES: Compared with prior studies the most recent being 07/05/2023 and 2022 TISSUE DENSITY: There are scattered areas of fibroglandular density. FINDINGS: No mammographic evidence of malignancy. Procedure Note Delano Williamson MD - 07/11/2024 EXAM: MM MAMMO DIGITAL DAVID SCREEN BILAT EXAM DATE: 07/10/2024 8:32 AM INDICATION: Z12.31-Encounter for screening mammogram for malignantneoplasm of [id number]-ZAW-10-CM COMPARISON STUDIES: Compared with prior studies the most recent being07/05/2023 and 2022 TISSUE DENSITY: There are scattered areas of fibroglandular density. FINDINGS: No mammographic evidence of malignancy. IMPRESSION: Negative ([id number]) RECOMMENDATION: Routine Screening Mammogram in 1 Year COMMENTS: Richard Teran MD IM MAMMOGRAPHY ORDERABLES Final Result * HEPATITIS C ANTIBODY IGM + IGG (12/09/2015 3:06 PM EST) Hep C Ab Negative Negative [facility] Blood specimen (specimen) 12/09/2015 3:06 PM EST 12/09/2015 5:23 PM EST us Mireille Jenkins MD IMMUNOLOGY ORDERABLES Fin al Result [facility] [address] [place] [address] from Last 3 Months or Most Recently Relevant to Health Maintenance Insurance HUMANA MEDICARE HMO MR HUMANA MEDICARE HMO MR Care Teams Slab Grinder Relationship Specialty Start Date End Date Richard Teran MD PCP - General 01/01/11
--- OUTSIDE RECORDS SUMMARY | 2025-07-09 14:50 | XMS_ITS | Clinical Summary ---
Author Organization [facility] Address [address] [place] [address] Care Team Providers Care Evp And Chief Operating Officer Name Role Phone Unavailable Primary Care Provider Unavailabl e Social History Tobacco Use Types Packs/Day Years Used Date Smoking Tobacco: Never Assessed Abuse Screen Answer Date Recorded Unsafe at Home or Work/School Not on file Feels Threatened by Someone? Not on file 08/2023 Does Anyone Keep You from Co ntacting Others or Doint Things Outside the Home? Not on file 08/13/2023 Physical Sign of Abuse Present Not on file 1 Housing Stability Answer Date Recorded Current Living Arrangements Not on file 08/04 Potentially Unsafe Housing Conditions Not on malina e 08/13/2023 Family and Community Support Answer Valeriy e Recorded Help with Day-to-Day Activities Not on file 08/13/2023 Lonely or Isolated Not on file 08/13/2023 Employment Answer Date Recorded Do you want help finding or keeping work or a burton b? Not on file 08/13/2023 Disabilities Answer Date Recorded Concentrating, Remembering, or Making Decisions Difficulty Not on file 08/13/2023 Doing Errands Independently Difficulty Not on fi le 08/13/2023 Education Answer Date Recorded Help with school or training? Not on file Preferred Language Not on file 08/13/2023 Comments Unknown Sex and Gender Information Value Date Recorded Sex Assigned at Not on file Legal Sex Female 1:51 PM EDT Gender Identity Not on file Sexual Orientation Not on file Plan of Treatment Health Maintenance Due Date Last Done Comments ANNUAL PHYSICAL 1954 DXA SCAN 1954 HEPATITIS C SCREENING 1954 TDAP/TD VACCINES (1 - Tdap) 1973 MAMMOGRAM 1994 COLOGUARD 1999 COLON CANCER SCREENING 5 YEAR SIGMOIDOSCOPY 1999 COLONOSCOPY [address] CANCER SCREENING [address] COLONOGRAPHY 1999 FECAL OCCULT BLOOD TEST 1999 FIT Testing (1 year) 1999 Pneumococcal Vaccine 50+ (1 of 1 - PCV) 2004 ZOSTER VACCINE (1 of 2) 2004 COVID-19 Vaccine (1 - season) 2025 INFLUENZA VACCINE 08/04/2025
[2025-07-09] MEDS: ALBUTEROL 0.083% 2.5 MG/3 ML NEB IH (15:21)
--- NOTE | 2025-07-09 15:21 | PC.NURSE ---
PFT and 6 Minute Walk Test completed without incident. Albuterol 0.083% given via HHN, per written protocol, PT tolerated tx well.
== END 2025-07-09 23:59 | disposition home or self-care (01) ==
LOC: RT 14:48
PROVIDERS: PCP Family Medicine; Visit Provider Internal Medicine Pulmonary Disease
DX: R94.2 Abnormal results of pulmonary function studies (principal); R06.09 Other forms of dyspnea; R06.02 Shortness of breath
CPT/HCPCS: 94060; 94618; 94726; 94729

== ENCOUNTER 2025-07-29 15:58 | Outpatient (CLI) | payer MEDICARE, SELFPAY ==
[2025-07-29 18:28] LABS: C-Reactive Protein 4.0 mg/L (0-4)
[2025-07-30 13:26] LABS: Antinuclear Antibodies (ANA) Negative (Negative)
== END 2025-07-29 23:59 | disposition home or self-care (01) ==
LOC: LAB 16:00
PROVIDERS: PCP Family Medicine; Visit Provider Internal Medicine Pulmonary Disease
DX: J84.9 Interstitial pulmonary disease, unspecified (principal); J30.9 Allergic rhinitis, unspecified
CPT/HCPCS: 36415; 82785; 86003; 86140; 86200